=== PATIENT | male | born 1955 | race Caucasian/White ===

== ENCOUNTER → 2019-01-08 | Outpatient (REF) | payer BC, MEDICARE ==
[~2019-01-08] MED LIST: CLON1TAB8 PO; FISH5CAP PO; LIPI10TA PO; MULTCAP PO; NEXI40CA PO; OMEP10CASR PO; TIZA4CAP PO; TRAM50TA2 PO; TRIH2TAB3 PO
[2019-01-08 13:58] LABS: INR 0.97; PROTHROMBIN TIME 12.6 SECONDS (11.8-14.0)
[2019-01-08 13:59] LABS: PARTIAL THROMBOPLASTIN TIME 28.2 SECONDS (25.0-38.4)
== END ==
LOC: M LAB REF 12:43
PROVIDERS: ATTEND Family Medicine
DX: Z01.818 Encounter for other preprocedural examination (principal); G24.9 Dystonia, unspecified

== ENCOUNTER 2019-08-14 09:41 | Emergency (ER) | payer BC, MEDICARE ==
[~2019-08-14] VITALS: Ht 167.6 cm; Wt 84.4 kg
[2019-08-14] MEDS ORDERED: ESOM40CA35 PO (10:01)
[2019-08-14] MEDS ORDERED: RIZA10TA2 PO (10:01)
[2019-08-14] MEDS ORDERED: CLON0.5T2 PO (10:01)
[2019-08-14] MEDS ORDERED: ATOR1TAB19 PO (10:01)
[2019-08-14] MEDS ORDERED: CLIN300C5 PO (10:01)
[2019-08-14] MEDS ORDERED: KETOROLAC 30 MG/ML VIAL (J1885) IV ONE (10:15)
[2019-08-14] MEDS ORDERED: NS 1,000 ML IV ONE (10:15)
[2019-08-14 10:43] LABS: BASO # 0.1 10^3/uL (0.0-0.2); BASO % 0.3 % (0.0-1.0); EOS # 0.1 10^3/uL (0.0-0.5); EOS % 0.3 % (0.0-3.0); HEMATOCRIT 41.6 % (42.0-52.0); HEMOGLOBIN 13.9 g/dl (13.5-17.5); LYMPH # 2.8 10^3/uL (1.5-5.0); LYMPH % 14.5 % (24.0-44.0); MEAN CORPUSCULAR HGB CONC 33.4 g/dl (32.0-36.5); MEAN CORPUSCULAR VOLUME 92.7 fl (80.0-96.0); MONO # 1.5 10^3/uL (0.0-0.8); MONO % 7.9 % (0.0-5.0); NEUTROPHILS # 14.7 10^3/uL (1.5-8.5); NEUTROPHILS % 76.5 % (36.0-66.0); PLATELET COUNT, AUTOMATED 274 10^3/uL (150-450); RED BLOOD COUNT 4.49 10^6/uL (4.30-6.10); WHITE BLOOD COUNT 19.2 10^3/uL (4.0-10.0)
[2019-08-14] MEDS ORDERED: ISOVUE-370 76% 100ML VIAL (Q9967) As Ordered ONE (10:45)
[2019-08-14 11:10] LABS: INR 1.05; PROTHROMBIN TIME 13.4 SECONDS (11.8-14.0)
[2019-08-14 11:11] LABS: PARTIAL THROMBOPLASTIN TIME 31.7 SECONDS (25.0-38.4)
[2019-08-14] MEDS ORDERED: FISH1000 PO (11:11)
[2019-08-14 11:14] LABS: ALBUMIN 3.8 GM/DL (3.2-5.2); BILIRUBIN,DIRECT 0.2 MG/DL (0.0-0.2); BILIRUBIN,TOTAL 0.6 MG/DL (0.2-1.0); C REACTIVE PROTEIN QUANTITATIV 9.52 MG/DL (0.00-0.30)
[2019-08-14] MEDS ORDERED: AMPICILLIN SOD/SULBACTAM SOD 3 GM in D5W MINI-BAG PLUS 100 ML IV ONE (11:15)
[2019-08-14 11:30] LABS: ERYTHROCYTE SEDIMENTATION RATE 45 mm/hr (0-20)
--- NOTE | 2019-08-14 11:42 | REPVR ---
PROCEDURE INFORMATION: Exam: CT Maxillofacial With Contrast Exam date and time: 08/14/2019 11:00 AM Age: 64 years old Clinical indication: Mass, lump, or swelling; Maxilla; Additional info: Maxillary swelling into mastoid R TECHNIQUE: Imaging protocol: Computed tomography images of the face with intravenous contrast. Radiation optimization: All CT scans at this facility use at least one of these dose optimization techniques: automated exposure control; mA and/or kV adjustment per patient size (includes targeted exams where dose is matched to clinical indication); or iterative reconstruction. Contrast material: ISOVUE 370; Contrast volume: 75 ml; Contrast route: IV; COMPARISON: No relevant prior studies available. FINDINGS: Orbits: Orbits are normal. Globes are unremarkable. Bones/joints: There are degenerative changes of the spine. There is anterior positioning of the mandible from the glenoid bilaterally. Sinuses: There is mucoperiosteal reaction in the right maxillary sinus. Submandibular/Parotid glands: There is a 1.6 x 1.1 x 0.7 cm calculus lateral to the right masseter muscle which is likely along the course of the right parotid duct. There is marked enlargement of the right parotid gland and infiltration of the adjacent fat including surrounding the right parotid duct. Soft tissues: There is a nonenlarged right level 2 lymph node. IMPRESSION: 1. There is a large calculus in the proximal right parotid duct. 2. There is marked infiltration of the fat surrounding the right parotid gland and the proximal right parotid duct which may be related to inflammatory change. A mass cannot be excluded. 3. There is no focal fluid collection. 4. A follow-up MRI without and with IV contrast may be useful for further assessment. Electronically signed by: Ronny Camejo On 08/14/2019 11:42:28 AM
[2019-08-14] MEDS ORDERED: AUGM875T28 PO (12:31)
[2019-08-14] MEDS ORDERED: KETO10TAB PO (12:31)
[2019-08-14 12:44] VITALS: BP 153/93
--- NOTE | 2019-08-15 09:19 | ED PDOC ---
Post-Departure Follow-Up katie lopez and carly faxed formal report of ct max fac for fu Flavio Pedersen MD Aug 15, 2019 09:19
== END 2019-08-14 12:47 | disposition home or self-care (01) ==
LOC: M ED 09:41
DX: K11.5 Sialolithiasis (principal); F33.9 Major depressive disorder, recurrent, unspecified; G24.3 Spasmodic torticollis; G43.909 Migraine, unspecified, not intractable, without status migrainosus; Z79.899 Other long term (current) drug therapy
CPT/HCPCS: 70487; 80047; 80076; 83605; 85025; 85610; 85652; 85730; 86140; 87040; 96361; 96365; 96375; 99284; J1885; Q9967

== ENCOUNTER → 2019-08-18 | Outpatient (REF) | payer BC, MEDICARE ==
[~2019-08-18] MED LIST changes: +ATOR1TAB19 PO; +AUGM875T28 PO; +CLIN300C5 PO; +CLON0.5T2 PO; +ESOM40CA35 PO; +FISH1000 PO; +KETO10TAB PO; +RIZA10TA2 PO
== END ==
LOC: M LAB REF 15:26
PROVIDERS: ATTEND Otolaryngology
DX: L02.01 Cutaneous abscess of face (principal); K11.23 Chronic sialoadenitis

== ENCOUNTER 2019-10-12 10:06 | Outpatient (RCR) | payer BC, MEDICARE | END 2019-11-02 | LOC: M PT 10:06 | PROVIDERS: ATTEND Orthopaedic Surgery Hand Surgery | DX: Z51.89 Encounter for other specified aftercare (principal); M16.11 Unilateral primary osteoarthritis, right hip ==

== ENCOUNTER 2019-11-16 20:00 | Emergency (ER) | payer BC, MEDICARE ==
[~2019-11-16] VITALS: Ht 167.6 cm; Wt 83.8 kg
[2019-11-16 22:33] LABS: BASO # 0.1 10^3/uL (0.0-0.2); BASO % 0.4 % (0.0-1.0); EOS # 0.2 10^3/uL (0.0-0.5); EOS % 1.1 % (0.0-3.0); HEMATOCRIT 43.3 % (42.0-52.0); HEMOGLOBIN 14.1 g/dl (13.5-17.5); LYMPH # 3.8 10^3/uL (1.5-5.0); LYMPH % 28.1 % (24.0-44.0); MEAN CORPUSCULAR HEMOGLOBIN 30.5 pg (27.0-33.0); MEAN CORPUSCULAR HGB CONC 32.6 g/dl (32.0-36.5); MEAN CORPUSCULAR VOLUME 93.5 fl (80.0-96.0); MONO % 7.7 % (0.0-5.0); NEUTROPHILS # 8.4 10^3/uL (1.5-8.5); NEUTROPHILS % 62.3 % (36.0-66.0); PLATELET COUNT, AUTOMATED 284 10^3/uL (150-450); RED BLOOD COUNT 4.63 10^6/uL (4.30-6.10); WHITE BLOOD COUNT 13.5 10^3/uL (4.0-10.0)
[2019-11-16] MEDS ORDERED: ISOVUE-370 76% 100ML VIAL As Ordered ONE (22:33)
[2019-11-16 22:51] LABS: ERYTHROCYTE SEDIMENTATION RATE 28 mm/hr (0-20)
[2019-11-16] MEDS ORDERED: NS 1,000 ML IV ONE (23:15)
--- NOTE | 2019-11-16 23:28 | REPVR ---
PROCEDURE INFORMATION: Exam: CT Maxillofacial With Contrast Exam date and time: 11/16/2019 10:45 PM Age: 64 years old Clinical indication: Mass, lump, or swelling; Other: Right cheek; Additional info: R/O abscess TECHNIQUE: Imaging protocol: Computed tomography images of the face with intravenous contrast. Radiation optimization: All CT scans at this facility use at least one of these dose optimization techniques: automated exposure control; mA and/or kV adjustment per patient size (includes targeted exams where dose is matched to clinical indication); or iterative reconstruction. Contrast material: IAOVUE 370; Contrast volume: 75 ml; Contrast route: INTRAVENOUS (IV); COMPARISON: CT Maxillofacial with contrast 08/14/2019 10:51 AM FINDINGS: Limitations: Examination is limited by motion artifact. Tubes, catheters and devices: There are bilateral deep brain stimulators 1present. Orbits: Orbits are normal. Globes are unremarkable. Bones/joints: No acute fracture. Sinuses: Normal. No air-fluid levels. Dental: Multiple dental fillings with associated beam hardening artifact. Submandibular/Parotid glands: Ill-defined and enlarged right parotid gland. There is a stone in the parotid gland measuring 12 x 5 mm. Subtle hypodensity extending from the stone through the skin measuring 7 x 12 x 9 mm. Soft tissues: No soft tissue gas. Diffuse infiltration of the subcutaneous tissue overlying the right parotid gland. IMPRESSION: 1. Ill-defined and enlarged right parotid gland with stone. Suspect parotiditis. Unchanged from prior. Correlate with history. Neoplasm cannot be excluded. 2. Subtle hypodensity extending from the stone through the skin. Possible phlegmon or abscess. Electronically signed by: Harshal Mckenna On 11/16/2019 23:28:00 PM
[2019-11-16] MEDS ORDERED: CLINDAMYCIN 600 MG in IV 1 EA IV ONE (23:30)
[2019-11-17] MEDS ORDERED: CLEO300C2 PO (00:43)
[2019-11-17 00:44] VITALS: BP 139/81
--- NOTE | 2019-11-17 13:16 | ED PDOC ---
Post-Departure Follow-Up jarek james and carly faxed formal report of ct max fac for fu Flavio Pedersen MD Nov 17, 2019 13:16
== END 2019-11-17 01:18 | disposition home or self-care (01) ==
LOC: M ED 20:00
DX: K11.20 Sialoadenitis, unspecified (principal); Z79.83 Long term (current) use of bisphosphonates; Z79.899 Other long term (current) drug therapy
CPT/HCPCS: 70487; 80047; 85025; 85652; 86140; 87070; 87077; 87186; 87205; 96365; 99283; Q9967

== ENCOUNTER 2019-12-08 09:00 | Day surgery (SDC) | payer BC, MEDICARE ==
[~2019-12-08 09:00] MED LIST changes: +CLEO300C2 PO; +KETOROLAC 60MG 2ML VIAL As Ordered ONE; +LIDOCAINE 2% 100MG/5ML SDV (FOR ANES.) As Ordered ONE; +MIDAZOLAM INJ 2MG/2ML VIAL (J2250 PER 1MG) As Ordered ONE; +ONDANSETRON 4MG/2ML VIAL As Ordered ONE; +ROCURONIUM BROMIDE 50 MG/5 ML VIAL As Ordered ONE; +dexameTHASONE 4 MG/ML 1ML VIAL (J1100 PER 1MG) As Ordered ONE; +fentaNYL 250 MCG/5 ML INJECTION (J3010) As Ordered ONE; +propofoL 200 MG/20 ML VIAL As Ordered ONE
[2019-12-08] MEDS ORDERED: TRIAMCINOLONE ACETONIDE SUSP 40 MG/ML VIAL (J3301) As Ordered ONE (10:06)
[2019-12-08] MEDS ORDERED: LIDOCAINE W/EPINEPHRINE 1% 20ML VIAL As Ordered ONE (10:06)
[2019-12-08] MEDS ORDERED: PHENYLephrine HCL 500 MCG/5 ML (100MCG/ML) SYRINGE (J2370) As Ordered ONE (11:36)
[2019-12-08] MEDS ORDERED: SUGAMMADEX SODIUM 500 MG/5 ML VIAL (BRIDION) As Ordered ONE (12:00)
[2019-12-08] MEDS ORDERED: ACETAMINOPHEN 1000MG 100ML IV BTL (OFIRMEV) (J0131 PER 10MG) As Ordered ONE (12:02)
[2019-12-08] MEDS ORDERED: BACITRACIN OINTMENT 30GM TUBE As Ordered ONE (12:11)
--- NOTE | 2020-02-10 09:03 | RO ---
DATE OF OPERATION: 12/08/2019 PREOPERATIVE DIAGNOSIS: Right parotid stone. POSTOPERATIVE DIAGNOSIS: Right parotid stone. PROCEDURE: Exploration right side of face. CHILD CARE EDUCATION COORDINATOR: River Hector, who held retractors, cauterized where necessary, and help suture. DESCRIPTION OF PROCEDURE: Under general anesthesia with the patient intubated, the patient was draped and prepped in the usual manner. I made an incision beneath the mandible on the right side and elevated the skin off of the parotid gland. I then explored the place where the drainage had come from. There was scarring in the area. I did blunt dissection extensively and after 30-40 minutes of exploration, I could not find a stone either by dissection or by palpation. I elected to leave it at the end of that time. I put in a 1/4-inch [place] drain and then closed the wound with interrupted 4-0 Vicryl and 5-0 nylon. The patient tolerated the procedure well. He was extubated and transferred to the recovery room in excellent condition. JOHN
== END 2019-12-08 11:00 | disposition home or self-care (01) ==
LOC: M SDC 09:00
PROVIDERS: ATTEND Otolaryngology
DX: K11.5 Sialolithiasis (principal); E78.5 Hyperlipidemia, unspecified; K21.9 Gastro-esophageal reflux disease without esophagitis; Z79.899 Other long term (current) drug therapy; Z91.040 Latex allergy status
CPT/HCPCS: 42330; J0131; J1100; J2250; J2370; J2405; J3010; J3301

== ENCOUNTER → 2019-12-29 | Outpatient (REF) | payer BC, MEDICARE ==
[~2019-12-29] MED LIST changes: -KETOROLAC 60MG 2ML VIAL As Ordered ONE; -LIDOCAINE 2% 100MG/5ML SDV (FOR ANES.) As Ordered ONE; -MIDAZOLAM INJ 2MG/2ML VIAL (J2250 PER 1MG) As Ordered ONE; -ONDANSETRON 4MG/2ML VIAL As Ordered ONE; -ROCURONIUM BROMIDE 50 MG/5 ML VIAL As Ordered ONE; -dexameTHASONE 4 MG/ML 1ML VIAL (J1100 PER 1MG) As Ordered ONE; -fentaNYL 250 MCG/5 ML INJECTION (J3010) As Ordered ONE; -propofoL 200 MG/20 ML VIAL As Ordered ONE
== END ==
LOC: M LAB REF 16:38
PROVIDERS: ATTEND Otolaryngology
DX: L02.01 Cutaneous abscess of face (principal); K11.23 Chronic sialoadenitis

== ENCOUNTER → 2020-01-11 | Outpatient (CLI) | payer BC, MEDICARE ==
--- NOTE | 2020-01-11 14:38 | REPVR ---
PROCEDURE INFORMATION: Exam: CT Maxillofacial Without Contrast Exam date and time: 01/11/2020 2:27 PM Age: 64 years old Clinical indication: Condition or disease; Other: Sialolithiasis TECHNIQUE: Imaging protocol: Computed tomography images of the face without contrast. Radiation optimization: All CT scans at this facility use at least one of these dose optimization techniques: automated exposure control; mA and/or kV adjustment per patient size (includes targeted exams where dose is matched to clinical indication); or iterative reconstruction. COMPARISON: CT Maxillofacial with contrast 11/16/2019 10:35 PM FINDINGS: Tubes, catheters and devices: Bilateral deep brain stimulating leads are noted. Orbits: Orbits are normal. Globes are unremarkable. Bones/joints: No acute fracture. Sinuses: Normal. No air-fluid levels. Soft tissues: Unremarkable. Submandibular/Parotid glands: As compared to the preceding examination, right parotid inflammatory change has significantly decreased. The previously apparent large parotid sialolith is no longer visualized. IMPRESSION: Decreased inflammatory change involving the right parotid gland as compared to preceding examination. Large right parotid sialolith is no longer visualized. Electronically signed by: India Marrero On 01/11/2020 14:38:54 PM
== END ==
LOC: M RAD 14:16
PROVIDERS: ATTEND Otolaryngology
DX: K11.5 Sialolithiasis (principal)

== ENCOUNTER → 2020-04-26 | Outpatient (CLI) | payer SELFPAY ==
[~2020-04-26] MED LIST changes: -CLIN300C5 PO; +CLIN300C6 PO
== END ==
LOC: M LABSMTC 09:43
PROVIDERS: ATTEND Pediatrics
DX: Z20.828 Contact with and (suspected) exposure to other viral communicable diseases (principal)

== ENCOUNTER → 2020-06-23 | Outpatient (REF) | payer BC, MEDICARE | LOC: M LAB REF 12:40 | PROVIDERS: ATTEND Family Medicine | DX: Z01.89 Encounter for other specified special examinations (principal) ==

== ENCOUNTER → 2021-09-05 | Outpatient (CLI) | payer MEDICARE, BC ==
[~2021-09-05] MED LIST changes: +CLIN-250 PO; -CLIN300C6 PO
== END ==
LOC: M PAIN 13:00
PROVIDERS: ATTEND Nurse Practitioner Family
DX: M48.061 Spinal stenosis, lumbar region without neurogenic claudication (principal); G89.29 Other chronic pain; K21.9 Gastro-esophageal reflux disease without esophagitis; G43.909 Migraine, unspecified, not intractable, without status migrainosus; Z86.59 Personal history of other mental and behavioral disorders; Z91.040 Latex allergy status; Z79.899 Other long term (current) drug therapy

== ENCOUNTER → 2021-11-20 | Outpatient (CLI) | payer MEDICARE, BC ==
[2021-11-22 23:10] LABS: PSA % FREE 16.7 % (.); PSA FREE 0.7 ng/mL; PSA TOTAL 4.2 ng/mL (0.0-4.0)
== END ==
LOC: M PLALAB 11:15
PROVIDERS: ATTEND Urology
DX: R97.20 Elevated prostate specific antigen [PSA] (principal)

== ENCOUNTER → 2022-03-19 | Outpatient (CLI) | payer BC, MEDICARE ==
[~2022-03-19] MED LIST changes: +GABA600T4; +TADA20TA
== END ==
LOC: M LABSMTC 09:18
PROVIDERS: ATTEND Anesthesiology
DX: Z01.812 Encounter for preprocedural laboratory examination (principal); Z20.822 Contact with and (suspected) exposure to COVID-19

== ENCOUNTER 2022-03-22 13:41 | Emergency (ER) | payer BC, MEDICARE ==
[~2022-03-22 13:41] MED LIST changes: -GABA600T4; -ISOVUE-M 300 61% 15ML VIAL As Ordered ONE; -LIDOCAINE 1% SDV 30ML VIAL As Ordered ONE; -NORCO, ANEXSIA 5/325MG TABLET (HYDROcodone/ACETAMINOPHEN) As Ordered ONE; -TADA20TA; -diazePAM 5MG TABLET As Ordered ONE; -methylPREDNISolone SUSP 40MG/ML 1ML VIAL (DEPO MEDROL) As Ordered ONE
[2022-03-22] MEDS ORDERED: TADA20TA (14:06)
[2022-03-22] MEDS ORDERED: GABA600T4 (14:06)
[2022-03-22 15:49] VITALS: BP 152/98
== END 2022-03-22 16:22 | disposition home or self-care (01) ==
LOC: M ED 13:41
DX: I10 Essential (primary) hypertension (principal); E78.5 Hyperlipidemia, unspecified; K21.9 Gastro-esophageal reflux disease without esophagitis; Z79.899 Other long term (current) drug therapy

== ENCOUNTER → 2022-03-22 | Outpatient (CLI) | payer BC, MEDICARE ==
[~2022-03-22] MED LIST changes: +ISOVUE-M 300 61% 15ML VIAL As Ordered ONE; +LIDOCAINE 1% SDV 30ML VIAL As Ordered ONE; +NORCO, ANEXSIA 5/325MG TABLET (HYDROcodone/ACETAMINOPHEN) As Ordered ONE; +diazePAM 5MG TABLET As Ordered ONE; +methylPREDNISolone SUSP 40MG/ML 1ML VIAL (DEPO MEDROL) As Ordered ONE
== END ==
LOC: M PAIN 10:00
PROVIDERS: ATTEND Anesthesiology
DX: M51.16 Intervertebral disc disorders with radiculopathy, lumbar region (principal); K21.9 Gastro-esophageal reflux disease without esophagitis; G43.909 Migraine, unspecified, not intractable, without status migrainosus; E78.5 Hyperlipidemia, unspecified; R97.20 Elevated prostate specific antigen [PSA]; G24.3 Spasmodic torticollis; G47.00 Insomnia, unspecified; F41.9 Anxiety disorder, unspecified; Z79.891 Long term (current) use of opiate analgesic; Z79.899 Other long term (current) drug therapy; Z91.040 Latex allergy status; Z53.09 Procedure and treatment not carried out because of other contraindication

== ENCOUNTER → 2022-03-25 | Outpatient (CLI) | payer BC, MEDICARE ==
[~2022-03-25] MED LIST changes: +GABA600T4; +TADA20TA
== END ==
LOC: M SLEEP 20:00
PROVIDERS: ATTEND Nurse Practitioner Family
DX: G47.33 Obstructive sleep apnea (adult) (pediatric) (principal)

== ENCOUNTER → 2022-04-23 | Outpatient (CLI) | payer BC, MEDICARE | LOC: M PAIN 09:45 | PROVIDERS: ATTEND Nurse Practitioner Family | DX: M51.16 Intervertebral disc disorders with radiculopathy, lumbar region (principal); G89.29 Other chronic pain; G47.30 Sleep apnea, unspecified; K21.9 Gastro-esophageal reflux disease without esophagitis; G43.909 Migraine, unspecified, not intractable, without status migrainosus; Z86.59 Personal history of other mental and behavioral disorders; Z91.040 Latex allergy status; Z79.899 Other long term (current) drug therapy ==

== ENCOUNTER → 2022-05-08 | Outpatient (CLI) | payer MEDICARE, BC | LOC: M PAIN 15:15 | PROVIDERS: ATTEND Anesthesiology | DX: M51.16 Intervertebral disc disorders with radiculopathy, lumbar region (principal); G89.29 Other chronic pain; G24.3 Spasmodic torticollis; K21.9 Gastro-esophageal reflux disease without esophagitis; G43.909 Migraine, unspecified, not intractable, without status migrainosus; Z96.89 Presence of other specified functional implants; Z86.59 Personal history of other mental and behavioral disorders; Z91.040 Latex allergy status; Z79.899 Other long term (current) drug therapy ==

== ENCOUNTER → 2022-05-16 | Outpatient (CLI) | payer MEDICARE, BC | LOC: M PAIN 15:45 | PROVIDERS: ATTEND Anesthesiology | DX: M48.061 Spinal stenosis, lumbar region without neurogenic claudication (principal); M51.16 Intervertebral disc disorders with radiculopathy, lumbar region; K21.9 Gastro-esophageal reflux disease without esophagitis; G43.909 Migraine, unspecified, not intractable, without status migrainosus; E78.5 Hyperlipidemia, unspecified; G24.3 Spasmodic torticollis; G47.00 Insomnia, unspecified; F41.9 Anxiety disorder, unspecified; Z79.891 Long term (current) use of opiate analgesic; Z79.899 Other long term (current) drug therapy; Z91.040 Latex allergy status ==

== ENCOUNTER → 2022-05-22 | Outpatient (CLI) | payer BC, MEDICARE | LOC: M LABSMTC 11:05 | PROVIDERS: ATTEND Anesthesiology | DX: Z01.812 Encounter for preprocedural laboratory examination (principal); Z20.822 Contact with and (suspected) exposure to COVID-19 ==

== ENCOUNTER → 2022-05-24 | Outpatient (CLI) | payer BC, MEDICARE ==
[~2022-05-24] MED LIST changes: +ISOVUE-M 300 61% 15ML VIAL As Ordered ONE; +LIDOCAINE 1% SDV 30ML VIAL As Ordered ONE; +diazePAM 5MG TABLET As Ordered ONE; +methylPREDNISolone SUSP 40MG/ML 1ML VIAL (DEPO MEDROL) As Ordered ONE
== END ==
LOC: M PAIN 11:00
PROVIDERS: ATTEND Anesthesiology
DX: M51.16 Intervertebral disc disorders with radiculopathy, lumbar region (principal); K21.9 Gastro-esophageal reflux disease without esophagitis; G43.909 Migraine, unspecified, not intractable, without status migrainosus; E78.5 Hyperlipidemia, unspecified; R97.20 Elevated prostate specific antigen [PSA]; G24.3 Spasmodic torticollis; G47.00 Insomnia, unspecified; F41.9 Anxiety disorder, unspecified; Z79.891 Long term (current) use of opiate analgesic; Z79.899 Other long term (current) drug therapy; Z91.040 Latex allergy status
CPT/HCPCS: 62323; J1030; Q9967

== ENCOUNTER → 2022-05-24 | Outpatient (CLI) | payer BC, MEDICARE ==
[~2022-05-24] MED LIST changes: -ISOVUE-M 300 61% 15ML VIAL As Ordered ONE; -LIDOCAINE 1% SDV 30ML VIAL As Ordered ONE; -diazePAM 5MG TABLET As Ordered ONE; -methylPREDNISolone SUSP 40MG/ML 1ML VIAL (DEPO MEDROL) As Ordered ONE
[2022-05-28 23:20] LABS: PSA % FREE 21.7 % (.); PSA FREE 0.89 ng/mL; PSA TOTAL 4.1 ng/mL (0.0-4.0)
== END ==
LOC: M PLALAB 15:26
PROVIDERS: ATTEND Urology
DX: R97.20 Elevated prostate specific antigen [PSA] (principal)

== ENCOUNTER → 2022-05-29 | Outpatient (REF) | payer MEDICARE, BC ==
[2022-05-29 17:26] LABS: APPEARANCE, URINE MANUAL CLEAR (CLEAR); COLOR, URINE MANUAL YELLOW (YELLOW)
[2022-05-29 17:27] LABS: BILIRUBIN, URINE MANUAL NEGATIVE (NEGATIVE); BLOOD URINE MANUAL NEGATIVE (NEGATIVE); GLUCOSE, URINE (UA) MANUAL NEGATIVE (NEGATIVE); KETONE, URINE MANUAL NEGATIVE (NEGATIVE); LEUKOCYTE ESTERASE, URINE MAN NEGATIVE (NEGATIVE); NITRITE, URINE MANUAL NEGATIVE (NEGATIVE); PROTEIN, URINE MANUAL NEGATIVE (NEGATIVE); SPECIFIC GRAVITY,URINE MANUAL 1.015 (1.002-1.035); UROBILINOGEN, URINE MANUAL NORMAL (NORMAL)
== END ==
LOC: M SMT 17:04
PROVIDERS: ATTEND Urology
DX: R39.15 Urgency of urination (principal)

== ENCOUNTER → 2022-06-06 | Outpatient (CLI) | payer BC, MEDICARE | LOC: M PAIN 13:00 | PROVIDERS: ATTEND Anesthesiology | DX: G89.29 Other chronic pain (principal); M51.16 Intervertebral disc disorders with radiculopathy, lumbar region; M48.061 Spinal stenosis, lumbar region without neurogenic claudication; K21.9 Gastro-esophageal reflux disease without esophagitis; G43.909 Migraine, unspecified, not intractable, without status migrainosus; E78.5 Hyperlipidemia, unspecified; G24.3 Spasmodic torticollis; R97.20 Elevated prostate specific antigen [PSA]; G47.00 Insomnia, unspecified; F41.9 Anxiety disorder, unspecified; N39.46 Mixed incontinence; Z79.899 Other long term (current) drug therapy; Z91.040 Latex allergy status ==

== ENCOUNTER → 2022-07-22 | Outpatient (CLI) | payer MEDICARE, BC | LOC: M LABSMTC 10:20 | PROVIDERS: ATTEND Anesthesiology | DX: Z01.818 Encounter for other preprocedural examination (principal); Z11.52 Encounter for screening for COVID-19 ==

== ENCOUNTER → 2022-07-23 | Outpatient (CLI) | payer BC, MEDICARE ==
[~2022-07-23] MED LIST changes: +BUPIVACAINE HCL 0.25% 30ML VIAL As Ordered ONE; +ISOVUE-M 300 61% 15ML VIAL As Ordered ONE; +LIDOCAINE 1% SDV 30ML VIAL As Ordered ONE; +diazePAM 5MG TABLET As Ordered ONE
== END ==
LOC: M PAIN 11:00
PROVIDERS: ATTEND Anesthesiology
DX: M51.16 Intervertebral disc disorders with radiculopathy, lumbar region (principal); K21.9 Gastro-esophageal reflux disease without esophagitis; G43.909 Migraine, unspecified, not intractable, without status migrainosus; E78.5 Hyperlipidemia, unspecified; G47.00 Insomnia, unspecified; G24.3 Spasmodic torticollis; F41.9 Anxiety disorder, unspecified; N39.41 Urge incontinence; Z79.891 Long term (current) use of opiate analgesic; Z79.899 Other long term (current) drug therapy; Z91.040 Latex allergy status
CPT/HCPCS: 64483; 64484; J1100; Q9967; S0020

== ENCOUNTER → 2022-09-17 | Outpatient (CLI) | payer BC, MEDICARE ==
[~2022-09-17] MED LIST changes: -BUPIVACAINE HCL 0.25% 30ML VIAL As Ordered ONE; -ISOVUE-M 300 61% 15ML VIAL As Ordered ONE; -LIDOCAINE 1% SDV 30ML VIAL As Ordered ONE; -diazePAM 5MG TABLET As Ordered ONE
== END ==
LOC: M PAIN 14:15
PROVIDERS: ATTEND Nurse Practitioner Family
DX: M51.16 Intervertebral disc disorders with radiculopathy, lumbar region (principal); G89.29 Other chronic pain; G43.909 Migraine, unspecified, not intractable, without status migrainosus; M54.50 Low back pain, unspecified; E78.5 Hyperlipidemia, unspecified; M25.551 Pain in right hip; G47.00 Insomnia, unspecified; F41.9 Anxiety disorder, unspecified; G24.3 Spasmodic torticollis; R97.20 Elevated prostate specific antigen [PSA]; Z79.891 Long term (current) use of opiate analgesic; Z79.899 Other long term (current) drug therapy; Z91.040 Latex allergy status

== ENCOUNTER → 2022-11-26 | Outpatient (CLI) | payer MEDICARE, BC | LOC: M PAIN 14:30 | PROVIDERS: ATTEND Anesthesiology | DX: Z53.29 Procedure and treatment not carried out because of patient's decision for other reasons (principal) ==

== ENCOUNTER → 2022-11-27 | Outpatient (CLI) | payer MEDICARE, BC ==
[2022-11-29 23:09] LABS: PSA % FREE 23.9 % (.); PSA FREE 0.98 ng/mL; PSA TOTAL 4.1 ng/mL (0.0-4.0)
== END ==
LOC: M PLALAB 14:11
PROVIDERS: ATTEND Urology
DX: R97.20 Elevated prostate specific antigen [PSA] (principal)

== ENCOUNTER → 2022-11-28 | Outpatient (CLI) | payer BC, MEDICARE ==
[~2022-11-28] MED LIST changes: +ISOVUE-M 300 61% 15ML VIAL As Ordered ONE; +LIDOCAINE 1% SDV 30ML VIAL As Ordered ONE; +NORCO, ANEXSIA 5/325MG TABLET (HYDROcodone/ACETAMINOPHEN) As Ordered ONE; +diazePAM 5MG TABLET As Ordered ONE; +methylPREDNISolone SUSP 40MG/ML 1ML VIAL (DEPO MEDROL) As Ordered ONE
== END ==
LOC: M PAIN 14:30
PROVIDERS: ATTEND Anesthesiology
DX: M51.16 Intervertebral disc disorders with radiculopathy, lumbar region (principal); G89.29 Other chronic pain; K21.9 Gastro-esophageal reflux disease without esophagitis; G43.909 Migraine, unspecified, not intractable, without status migrainosus; E78.5 Hyperlipidemia, unspecified; R97.20 Elevated prostate specific antigen [PSA]; G47.00 Insomnia, unspecified; F41.9 Anxiety disorder, unspecified; Z79.891 Long term (current) use of opiate analgesic; Z79.899 Other long term (current) drug therapy; Z91.040 Latex allergy status
CPT/HCPCS: 62323; J1030; Q9967

== ENCOUNTER → 2023-01-24 | Outpatient (CLI) | payer BC, MEDICARE ==
[~2023-01-24] MED LIST changes: -ISOVUE-M 300 61% 15ML VIAL As Ordered ONE; -LIDOCAINE 1% SDV 30ML VIAL As Ordered ONE; -NORCO, ANEXSIA 5/325MG TABLET (HYDROcodone/ACETAMINOPHEN) As Ordered ONE; -diazePAM 5MG TABLET As Ordered ONE; -methylPREDNISolone SUSP 40MG/ML 1ML VIAL (DEPO MEDROL) As Ordered ONE
== END ==
LOC: M PAIN 11:45
PROVIDERS: ATTEND Anesthesiology
DX: M54.50 Low back pain, unspecified (principal); M47.816 Spondylosis without myelopathy or radiculopathy, lumbar region; G89.29 Other chronic pain; G47.30 Sleep apnea, unspecified; K21.9 Gastro-esophageal reflux disease without esophagitis; G43.909 Migraine, unspecified, not intractable, without status migrainosus; Z86.59 Personal history of other mental and behavioral disorders; Z91.040 Latex allergy status; Z79.899 Other long term (current) drug therapy
CPT/HCPCS: 76000; G0463

== ENCOUNTER → 2023-03-21 | Outpatient (CLI) | payer BC, MEDICARE ==
[~2023-03-21] MED LIST changes: +ISOVUE-M 300 61% 15ML VIAL As Ordered ONE; +LIDOCAINE 1% SDV 30ML VIAL As Ordered ONE
== END ==
LOC: M PAIN 10:15
PROVIDERS: ATTEND Anesthesiology
DX: M47.816 Spondylosis without myelopathy or radiculopathy, lumbar region (principal); G89.29 Other chronic pain; Z80.8 Family history of malignant neoplasm of other organs or systems; Z91.040 Latex allergy status; Z79.899 Other long term (current) drug therapy
CPT/HCPCS: 64493; 64494; J0665; Q9967

== ENCOUNTER → 2023-04-04 | Outpatient (CLI) | payer MEDICARE, BC ==
[~2023-04-04] MED LIST changes: -ISOVUE-M 300 61% 15ML VIAL As Ordered ONE; -LIDOCAINE 1% SDV 30ML VIAL As Ordered ONE
== END ==
LOC: M PAIN 15:00
PROVIDERS: ATTEND Anesthesiology
DX: M47.816 Spondylosis without myelopathy or radiculopathy, lumbar region (principal); G89.29 Other chronic pain; M54.50 Low back pain, unspecified; K21.9 Gastro-esophageal reflux disease without esophagitis; G43.909 Migraine, unspecified, not intractable, without status migrainosus; E78.5 Hyperlipidemia, unspecified; G24.8 Other dystonia; G47.00 Insomnia, unspecified; F41.9 Anxiety disorder, unspecified; N39.41 Urge incontinence; Z79.899 Other long term (current) drug therapy; Z91.040 Latex allergy status

== ENCOUNTER → 2023-05-08 | Outpatient (CLI) | payer MEDICARE, BC | LOC: M PAIN 09:30 → M TMPAIN 09:30 | PROVIDERS: ATTEND Anesthesiology | DX: M47.816 Spondylosis without myelopathy or radiculopathy, lumbar region (principal); G89.29 Other chronic pain; M54.50 Low back pain, unspecified; Z79.899 Other long term (current) drug therapy; Z91.040 Latex allergy status ==

== ENCOUNTER → 2023-07-10 | Outpatient (CLI) | payer MEDICARE | LOC: M PAIN 16:15 | PROVIDERS: ATTEND Anesthesiology | DX: M54.50 Low back pain, unspecified (principal); K21.9 Gastro-esophageal reflux disease without esophagitis; G43.909 Migraine, unspecified, not intractable, without status migrainosus; E78.5 Hyperlipidemia, unspecified; G24.3 Spasmodic torticollis; G47.00 Insomnia, unspecified; F41.9 Anxiety disorder, unspecified; Z79.899 Other long term (current) drug therapy; Z91.040 Latex allergy status ==

== ENCOUNTER → 2023-07-23 | Outpatient (REF) | payer BC, MEDICARE ==
[2023-07-23 14:23] LABS: FOLATE > 24.0 NG/ML (>5.4); VITAMIN B12 LEVEL 633 PG/ML (211-911)
== END ==
LOC: M LAB REF 12:24
PROVIDERS: ATTEND Family Medicine
DX: G24.9 Dystonia, unspecified (principal)

== ENCOUNTER → 2023-08-06 | Outpatient (CLI) | payer BC, MEDICARE | LOC: M PAIN 13:00 | PROVIDERS: ATTEND Anesthesiology | DX: M25.561 Pain in right knee (principal); M25.562 Pain in left knee; K21.9 Gastro-esophageal reflux disease without esophagitis; G43.909 Migraine, unspecified, not intractable, without status migrainosus; R78.5 Finding of other psychotropic drug in blood; Z79.899 Other long term (current) drug therapy; Z91.040 Latex allergy status | CPT/HCPCS: 99214; G0463 ==

== ENCOUNTER → 2023-08-06 | Outpatient (CLI) | payer BC, MEDICARE | LOC: M RAD 13:54 | PROVIDERS: ATTEND Anesthesiology | DX: G89.29 Other chronic pain (principal); M25.561 Pain in right knee; M25.562 Pain in left knee ==

== ENCOUNTER → 2023-09-23 | Outpatient (CLI) | payer BC, MEDICARE | LOC: M PLAIMG 09:51 | PROVIDERS: ATTEND Anesthesiology | DX: M25.561 Pain in right knee (principal); M25.562 Pain in left knee ==

== ENCOUNTER → 2023-10-27 | Outpatient (CLI) | payer BC, MEDICARE | LOC: M PAIN 11:15 | PROVIDERS: ATTEND Nurse Practitioner Family | DX: M47.816 Spondylosis without myelopathy or radiculopathy, lumbar region (principal); G24.9 Dystonia, unspecified; G47.30 Sleep apnea, unspecified; Z99.89 Dependence on other enabling machines and devices; E78.5 Hyperlipidemia, unspecified; Z96.82 Presence of neurostimulator; Z79.02 Long term (current) use of antithrombotics/antiplatelets; Z79.1 Long term (current) use of non-steroidal anti-inflammatories (NSAID); Z79.891 Long term (current) use of opiate analgesic; Z91.040 Latex allergy status | CPT/HCPCS: 99213; G0463 ==

== ENCOUNTER → 2023-11-24 | Outpatient (CLI) | payer BC, MEDICARE ==
[2023-11-25 14:38] LABS: PSA FREE 1.1 ng/mL; PSA TOTAL 3.1 ng/mL (< OR = 4.0)
== END ==
LOC: M LAB 14:40
PROVIDERS: ATTEND Urology
DX: R97.20 Elevated prostate specific antigen [PSA] (principal)

== ENCOUNTER → 2023-12-26 | Outpatient (CLI) | payer BC, MEDICARE ==
[~2023-12-26] MED LIST changes: +GABA-1490; -GABA600T4
== END ==
LOC: M PAIN 11:00
PROVIDERS: ATTEND Nurse Practitioner Family
DX: M47.816 Spondylosis without myelopathy or radiculopathy, lumbar region (principal); G89.29 Other chronic pain; K21.9 Gastro-esophageal reflux disease without esophagitis; G43.909 Migraine, unspecified, not intractable, without status migrainosus; E78.5 Hyperlipidemia, unspecified; G24.3 Spasmodic torticollis; G47.00 Insomnia, unspecified; F41.9 Anxiety disorder, unspecified; Z79.899 Other long term (current) drug therapy; Z91.040 Latex allergy status

== ENCOUNTER → 2024-06-01 | Outpatient (CLI) | payer BC, MEDICARE, OTHER | LOC: M RAD 06:45 | PROVIDERS: ATTEND Family Medicine | DX: R74.01 Elevation of levels of liver transaminase levels (principal); K76.0 Fatty (change of) liver, not elsewhere classified ==

== ENCOUNTER → 2024-11-10 | Outpatient (CLI) | payer MEDICARE, BC | LOC: M RAD 14:50 | PROVIDERS: ATTEND Pain Medicine Interventional Pain Medicine | DX: M54.16 Radiculopathy, lumbar region (principal) ==